=== PATIENT | female | born 1945 | race Caucasian/White ===

== ENCOUNTER 2019-10-09 22:25 | Emergency (ER) | payer MEDICARE ==
[2019-10-09] MEDS ORDERED: Sodium Chloride 0.9% 10 ML Syringe FLUSH PRN (23:24)
[2019-10-09] MEDS ORDERED: HYDROmorphone 0.5 MG/0.5 ML Syringe IVPUSH ONE (23:25)
[2019-10-09] MEDS ORDERED: Ondansetron 4 MG/2 ML SDV IVPUSH ONE (23:26)
--- NOTE | 2019-10-10 01:21 | CRLCT ---
Indication: Acute right lower quadrant pain Technique: Nonenhanced axial CT imaging through the abdomen and pelvis. Sagittal and coronal reconstructions are provided. Comparison: None Findings: There is mild perihepatic ascites. There is also mild pneumoperitoneum. The gastric pylorus demonstrates circumferential wall thickening and irregularity. Findings are concerning for perforated gastric ulcer. There is unremarkable noncontrast appearance of the liver, spleen, pancreas, adrenal glands, and kidneys. There is no abdominal lymphadenopathy. There are scattered atherosclerotic disease of the abdominal aorta, without aneurysm. There are no abnormally dilated small bowel loops. The appendix is noninflamed. Prominent fecal material is noted throughout the colon, suggesting constipation. There is no colonic wall thickening. No inflammatory changes are demonstrated in the mesentery. Degenerative facet disease is noted in the lumbar spine. The included lung bases are clear. Impression: Mild ascites and pneumoperitoneum along with wall thickening and irregularity of the gastric pylorus. Findings are concerning for perforated gastric ulcer. Findings were discussed with Dr. Gordon at 1:18 a.m. Please note that all CT scans at this facility use dose modulation, iterative reconstruction, and/or weight-based dosing when appropriate to reduce radiation dose to as low as reasonably achievable. Dictated by Brooke Sanchez MD @ Oct 10 2019 1:09AM Signed by Dr. Brooke Sanchez @ Oct 10 2019 1:19AM
[2019-10-10] MEDS ORDERED: HYDROmorphone 0.5 MG/0.5 ML Syringe IVPUSH ONE (01:36)
--- NOTE | 2019-10-10 01:48 | EDM.PDOC ---
ED HPI GENERAL MEDICAL PROBLEM - General Chief Complaint: Back Pain or Injury Stated Complaint: RT SIDED PAIN, BACK ACHE Time Seen by Provider: 10/09/19 23:35 Source of Information: Reports: Patient, Family History Limitations: Reports: No Limitations - History of Present Illness INITIAL COMMENTS - FREE TEXT/NARRATIVE: Rochelle has been having increasing RLQ pain since 1400 hrs today. 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 Right Back Pain Score (Numeric/FACES): 5 - Related Data Allergies Allergy/AdvReac Type Severity Reaction Status Date / Time No Known Allergies Allergy Verified 10/09/19 22:57 Home Meds: Home Meds Aspirin [Ecotrin EC] 81 mg PO DAILY 10/09/19 [History] Insulin Glargine,Hum.Rec.Anlog [Lantus Solostar] 17 unit SQ BEDTIME 10/09/19 [History] Insulin Lispro [HumaLOG] 1 unit SQ ACBREAKFASTANDBED 10/09/19 [History] LORazepam [Ativan] 0.5 mg PO Q6H PRN 10/09/19 [History] Mirtazapine [Remeron] 15 mg PO BEDTIME 10/09/19 [History] buPROPion [buPROPion XL] 150 mg PO BID 10/09/19 [History] busPIRone [Buspar] 15 mg PO BID 10/09/19 [History] traZODone HCl [Trazodone HCl] 50 mg PO BEDTIME 10/09/19 [History] Past Medical History HEENT History: Reports: Impaired 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 Constitutional: Reports: Decreased Appetite HEENT: Reports: No Symptoms Respiratory: Reports: No Symptoms Cardiovascular: Reports: No Symptoms Endocrine: Reports: No Symptoms GI/Abdominal: Reports: Abdominal Pain, Decreased Appetite : Reports: No Symptoms Musculoskeletal: Reports: Back Pain Skin: Reports: No Symptoms Neurological: Reports: No Symptoms Psychiatric: Reports: Anxiety Hematologic/Lymphatic: Reports: No Symptoms Immunologic: Reports: No Symptoms ED EXAM,LOWER BACK PAIN/INJURY - Physical Exam Exam: See Below Exam Limited By: No Limitations General Appearance: Moderate Distress Eye Exam: Bilateral Eye: EOMI, Proptosis Throat/Mouth: Normal Inspection, Normal Lips, Normal Oropharynx, Normal Voice Head: Atraumatic, Normocephalic Neck: Normal Inspection, Supple, Non-Tender, Full Range of Motion Respiratory/Chest: No Respiratory Distress, Lungs Clear, Normal Breath Sounds, No Accessory Muscle Use, Chest Non-Tender Cardiovascular: Normal Peripheral Pulses, Regular Rate, Rhythm GI/Abdominal: Guarding, Tender (RUQ & RLQ), Abnormal Bowel Sounds (diminished biwel sounds). No: Rebound (Female) Exam: Deferred Rectal (Female) Exam: Deferred Extremities: Normal Inspection, Normal Range of Motion, Non-Tender, No Pedal Edema Neurological: Alert, Normal Mood/Affect, CN II-XII Intact, Normal Gait, No Motor/Sensory Deficits, Oriented x 3 Psychiatric: Anxious Skin Exam: Warm, Dry, Intact, Normal Color, No Rash Lymphatic: No Adenopathy Course - Vital Signs Last Recorded V/S: Last Vital Signs Temp 35.5 C L 10/09/19 22:51 Pulse 98 10/10/19 02:07 Resp 16 10/10/19 02:07 BP 181/78 H 10/10/19 02:07 Pulse Ox 98 10/10/19 02:07 - Orders/Labs/Meds Orders: Active Orders 24 hr Category Date Time Status Saline Lock Insert [OM.PC] Routine Oth 10/09/19 23:24 Ordered Labs: Laboratory Tests 10/09/19 10/09/19 10/09/19 Range/Units 23:45 23:45 23:45 WBC 8.6 (4.5-11.0) K/uL RBC 3.93 (3.30-5.50) M/uL Hgb 12.5 (12.0-15.0) g/dL Hct 37.1 (36.0-48.0) % MCV 94 (80-98) fL MCH 32 H (27-31) pg MCHC 34 (32-36) % Plt Count 245 (150-400) K/uL Neut % (Auto) 82 H (36-66) % Lymph % (Auto) 9 L (24-44) % [place] % (Auto) 7 H (2-6) % Eos % (Auto) 1 L (2-4) % Baso % (Auto) 0 (0-1) % Sodium 133 L (140-148) mmol/L Potassium 4.4 (3.6-5.2) mmol/L Chloride 97 L (100-108) mmol/L Carbon Dioxide 23 (21-32) mmol/L Anion Gap 17.4 H (5.0-14.0) mmol/L BUN 26 H (7-18) mg/dL Creatinine 1.2 H (0.6-1.0) mg/dL Est Cr Clr Drug Dosing 33.51 mL/min Estimated GFR (MDRD) 44 L (>60) Glucose 167 H (74-106) mg/dL Lactic Acid 1.5 (0.4-2.0) mmol/L Calcium 8.6 (8.5-10.1) mg/dL Total Bilirubin 0.5 (0.2-1.0) mg/dL AST 20 (15-37) U/L ALT 18 (12-78) U/L Alkaline Phosphatase 111 (46-116) U/L Total Protein 6.7 (6.4-8.2) g/dL Albumin 3.5 (3.4-5.0) g/dL Globulin 3.2 (2.3-3.5) g/dL Albumin/Globulin Ratio 1.1 L (1.2-2.2) Lipase 79 (73-393) U/L Meds: Medications Discontinued Medications Generic Name Dose Route Start Last Admin Trade Name Freq PRN Reason Stop Dose Admin Hydromorphone HCl 0.25 mg 10/09/19 23:25 10/09/19 23:53 Dilaudid IVPUSH 10/09/19 23:26 0.25 mg ONETIME ONE Administration Hydromorphone HCl 0.5 mg 10/10/19 01:36 10/10/19 01:43 Dilaudid IVPUSH 10/10/19 01:37 0.5 mg ONETIME ONE Administration Pantoprazole Sodium 80 mg/ 100 mls @ 200 mls/hr 10/10/19 02:15 10/10/19 02:38 Sodium Chloride IV 200 mls/hr .BOLUS NATI Administration Vancomycin HCl 1 gm/ Sodium 250 mls @ 150 mls/hr 10/10/19 02:15 10/10/19 03:23 Chloride IV 10/10/19 03:54 150 mls/hr ONETIME ONE Administration Ceftriaxone Sodium 1 gm/ 50 mls @ 100 mls/hr 10/10/19 02:15 10/10/19 02:45 Sodium Chloride IV 10/10/19 02:44 100 mls/hr ONETIME ONE Administration Sodium Chloride Confirm 10/10/19 02:40 10/10/19 02:48 Normal Saline Administered 10/10/19 02:41 200 mls/hr Dose Administration 100 mls @ as directed .ROUTE .STK-MED ONE Ondansetron HCl 4 mg 10/09/19 23:26 10/09/19 23:51 Zofran IVPUSH 10/09/19 23:27 4 mg ONETIME ONE Administration Sodium Chloride 10 ml 10/09/19 23:24 10/10/19 02:57 Saline Flush FLUSH 10 ml ASDIRECTED PRN Administration Keep Vein Open - Re-Assessments/Exams Free Text/Narrative Re-Assessment/Exam: 10/10/19 02:11 I discussed the case with Dr. Levine from [facility] who accepts the patient in transfer for further evaluation and care. Departure - Departure Time of Disposition: 03:52 Disposition: DC/Tfer to Acute Hospital 02 Condition: Good Clinical Impression: Perforated duodenal ulcer - Discharge Information *PRESCRIPTION DRUG MONITORING PROGRAM REVIEWED*: Not Applicable Instructions: Peptic Ulcer Referrals: PCP,None [Primary Care Provider] - Forms: ED Department Discharge Sepsis Event Note (ED) - Evaluation Sepsis Screening Result: No Definite Risk - Focused Exam Vital Signs: Vital Signs Temp Pulse Resp BP Pulse Ox 10/10/19 02:07 98 16 181/78 H 98 10/10/19 00:55 86 16 152/67 H 100 10/09/19 23:06 203/78 H 10/09/19 22:51 35.5 C L 79 20 217/81 H 100 - My Orders Last 24 Hours: My Active Orders 10/09/19 23:24 Saline Lock Insert [OM.PC] Routine - Assessment/Plan Last 24 Hours: My Active Orders 10/09/19 23:24 Saline Lock Insert [OM.PC] Routine
[2019-10-10] MEDS ORDERED: Pantoprazole 80 MG in Sodium Chloride 0.9% 100 ML IV SCH (02:15)
[2019-10-10] MEDS ORDERED: cefTRIAXone 1 GM in Sodium Chloride 0.9% 50 ML IV ONE (02:15)
[2019-10-10] MEDS ORDERED: Sodium Chloride 0.9% 100 ML ONE (02:40)
== END 2019-10-10 03:52 ==
LOC: JP.ED 22:25
DX: K26.5 Chronic or unspecified duodenal ulcer with perforation (principal); F41.9 Anxiety disorder, unspecified; F32.9 Major depressive disorder, single episode, unspecified; E10.9 Type 1 diabetes mellitus without complications; Z79.899 Other long term (current) drug therapy; Z79.82 Long term (current) use of aspirin
CPT/HCPCS: 36415; 74176; 80053; 83605; 83690; 85025; 96365; 96367; 96375; 96376; 99285; C9113; J0696; J1170; J2405; J3370; J7050

== ENCOUNTER 2022-09-26 20:17 | Emergency (ER) | payer MEDICARE ==
[2022-09-26 20:44] LABS: APPEARANCE,URINE CLOUDY (CLEAR); BILIRUBIN,URINE NEGATIVE (NEGATIVE); COLOR,URINE YELLOW (YELLOW); GLUCOSE,URINE 250 mg/dL (NEGATIVE); KETONES,URINE NEGATIVE (NEGATIVE); LEUKOCYTE ESTERASE,URINE MODERATE (NEGATIVE); NITRITE,URINE NEGATIVE (NEGATIVE); OCCULT BLOOD,URINE TRACE-INTACT (NEGATIVE); PH,URINE 5.5 (5.0-8.0); PROTEIN,URINE TRACE mg/dL (NEGATIVE)
[2022-09-26 20:45] LABS: AMORPHOUS SEDIMENT,URINE NOT SEEN; BACTERIA,URINE MODERATE; EPITHELIAL CELLS,URINE FEW; MUCUS,URINE RARE; RBC,URINE 0-5 (0-5); WBC,URINE 40-50 (0-5)
== END 2022-09-26 22:49 | disposition home or self-care (01) ==
LOC: JP.ED 20:17
DX: N30.00 Acute cystitis without hematuria (principal); E10.9 Type 1 diabetes mellitus without complications; Z79.4 Long term (current) use of insulin
CPT/HCPCS: 81001; 87086; 87088; 87186; 99283